=== PATIENT | female | born 1955 | race Caucasian/White ===

== ENCOUNTER → 2023-03-02 09:54 | Emergency (ER) | payer MEDICAID ==
[~2023-03-02] VITALS: Ht 162.6 cm; Wt 65.0 kg
[2023-03-02 09:56] VITALS: BP 0/0; PULSE 0; RESP 0; O2SAT 90
== END ==
LOC: ER 09:54
DX: R06.03 Acute respiratory distress (principal)
CPT/HCPCS: 99285